=== PATIENT | male | born 1965 | race Caucasian/White ===

== ENCOUNTER 2018-12-09 16:41 | Emergency (ER) | payer SELFPAY ==
[~2018-12-09] VITALS: Ht 180.3 cm; Wt 79.5 kg
[2018-12-09 16:47] VITALS: Ht 180.3 cm; Wt 79.5 kg
[2018-12-09 17:11] LABS: BASOPHILS 0.1 % (0-2); EOSINOPHILS 0 % (0-7); HEMATOCRIT 39.8 % (42.0-54.0); HEMOGLOBIN 13.4 g/dL (13.5-17.5); IMMATURE GRANULOCYTES 0.4 % (0-5); LYMPHOCYTES 5.4 % (15-50); MCH 35.4 pg (26.0-34.0); MCHC 33.7 g/dL (31.0-37.0); MONOCYTES 9.8 % (2-11); NEUTROPHILS 84.3 % (40-80); PLATELET COUNT 229 10x3/uL (130-400); RBC 3.79 10x6/uL (4.20-6.10); RDW 12.8 % (11.5-14.5); WBC 18.7 10x3/uL (4.8-10.8)
[2018-12-09 17:43] LABS: COLOR YELLOW (YELLOW)
[2018-12-09 17:44] LABS: APPEARANCE CLEAR (CLEAR); BILIRUBIN NEGATIVE (NEGATIVE); GLUCOSE NEGATIVE (NEGATIVE); KETONE NEGATIVE (NEGATIVE); NITRITE NEGATIVE (NEGATIVE); PROTEIN NEGATIVE (NEGATIVE); SPECIFIC GRAVITY 1.015 (1.005-1.020); UROBILINOGEN NORMAL (NORMAL)
[2018-12-09 17:48] LABS: UDS - AMPHET NEGATIVE QUAL (NEGATIVE); UDS - BARB NEGATIVE QUAL (NEGATIVE); UDS - BENZO NEGATIVE QUAL (NEGATIVE); UDS - COCAINE NEGATIVE QUAL (NEGATIVE); UDS - OPIATE POSITIVE QUAL (NEGATIVE); UDS - PCP NEGATIVE QUAL (NEGATIVE); UDS - THC NEGATIVE QUAL (NEGATIVE)
[2018-12-09 18:30] LABS: CALC OSMOLALITY 285 mosm/kg (275-300); CALCIUM 8.8 mg/dL (8.5-10.1); CARBON DIOXIDE 20.9 mmol/L (21.0-32.0); CHLORIDE - SERUM 99 mmol/L (98-107); CREATININE - SERUM 1.7 mg/dL (0.6-1.3); GLUCOSE 128 mg/dL (74-106); POTASSIUM - SERUM 3.2 mmol/L (3.5-5.1); SODIUM 142 mmol/L (136-145); UREA NITROGEN 15 mg/dL (7-18); eGFR NON AFRICAN AMERICAN 45 mL/min (90-120)
[2018-12-09 18:47] LABS: ALBUMIN 4.2 g/dL (3.4-5.0); ALKALINE PHOSPHATASE 73 U/L (46-116); ALT (SGPT) 151 U/L (10-68); BILIRUBIN - TOTAL 1.15 mg/dL (0.2-1.3); CKMB 13.7 U/L (0.0-3.6); CREATINE KINASE 1347 UL (21-232); INR 1.09 (0.85-1.17); MAGNESIUM - SERUM 1.4 mg/dL (1.8-2.4); PRO BNP 598 pg/mL (0-125); PROTEIN - SERUM 7.7 g/dL (6.4-8.2); PROTIME 13.6 SECONDS (11.6-15.0); TROPONIN-I 0.044 ng/mL (0.000-0.060)
[2018-12-09 20:31] VITALS: BP 151/105
== END 2018-12-09 20:32 | disposition other institution (70) ==
LOC: D.ER 16:41
PROVIDERS: Family Medicine; General Practice
DX: S22.5XXA Flail chest, initial encounter for closed fracture (principal); S02.651A Fracture of angle of right mandible, initial encounter for closed fracture; S62.309A Unspecified fracture of unspecified metacarpal bone, initial encounter for closed fracture; S62.101A Fracture of unspecified carpal bone, right wrist, initial encounter for closed fracture; X58.XXXA Exposure to other specified factors, initial encounter; J93.9 Pneumothorax, unspecified